=== PATIENT | female | born 1955 | race Caucasian/White ===

== ENCOUNTER 2016-03-22 16:22 | Emergency (ER) | payer BC ==
--- NOTE | 2016-03-22 17:59 | XR ---
EXAMINATION TYPE: XR tibia fibula LT DATE OF EXAM: 03/22/2016 5:42 PM COMPARISON: NONE HISTORY: Pain TECHNIQUE: 2 views FINDINGS: I see no fracture nor dislocation. Knee joint and ankle joint appear intact. IMPRESSION: Negative left tibia and fibula exam.
--- NOTE | 2016-03-22 17:59 | XR ---
EXAMINATION TYPE: XR foot complete LT DATE OF EXAM: 03/22/2016 5:42 PM COMPARISON: NONE HISTORY: Foot pain TECHNIQUE: 3 views FINDINGS: There is narrowing and spurring at the first MP joint. I see no fracture nor dislocation. M etatarsals are intact. 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 No fracture.
--- NOTE | 2016-03-22 18:14 | ED ---
Lower Extremity Injury HPI - General Chief Complaint: Extremity Injury, Lower Stated Complaint: Leg Injury Time Seen by Provider: 03/22/16 17:20 Source: patient, RN notes reviewed Mode of arrival: wheelchair Limitations: no limitations - History of Present Illness Initial Comments: 60-year-old female presents emergency Department chief complaint left leg pain. Patient states she was riding her horse and which of course tipped over onto her leg. Patient states she has left pain below her left knee and left foot pain. Patient states she was able to ambulate but states after seeing a while she's had increasing pain. Patient states her some swelling noted. Patient denies any head injury, LOC. Patient denies any chest pain or shortness breath. Denies any upper extremity injury. - Related Data Allergies Allergy/AdvReac Type Severity Reaction Status Date / Time prochlorperazine Allergy Unknown Verified 03/22/16 16:51 [From Compazine] Review of Systems ROS Statement: Those systems with pertinent positive or pertinent negative responses have been documented in the HPI. ROS Other: All systems not noted in ROS Statement are negative. Past Medical History Past Medical History: Hypertension, Thyroid Disorder History of Any Multi-Drug Resistant Organisms: None Reported Past Surgical History: Orthopedic Surgery Additional Past Surgical History / Comment(s): fibroid removal, left shoulder Past Psychological History: No Psychological Hx Reported Smoking Status: Never smoker Past Alcohol Use History: None Reported Past Drug Use History: None Reported General Exam Limitations: no limitations General appearance: alert, in no apparent distress Head exam: Present: atraumatic, normocephalic, normal inspection Neck exam: Present: normal inspection, full ROM. Absent: tenderness, meningismus, lymphadenopathy Respiratory exam: Present: normal lung sounds bilaterally. Absent: respiratory distress, wheezes, rales, rhonchi, stridor Cardiovascular Exam: Present: regular rate, normal rhythm, normal heart sounds. Absent: systolic murmur, diastolic murmur, rubs, gallop, clicks GI/Abdominal exam: Present: soft, normal bowel sounds. Absent: distended, tenderness, guarding, rebound, rigid Extremities exam: Present: other (Tenderness the left tib-fib at the proximal region, mild swelling no ecchymosis, left foot mild tenderness over the first metatarsal neurovascular intact) Back exam: Present: full ROM. Absent: tenderness, paraspinal tenderness, vertebral tenderness Neurological exam: Present: alert, oriented X3, CN II-XII intact, reflexes normal. Absent: motor sensory deficit Skin exam: Present: warm, dry, intact, normal color. Absent: rash Course Vital Signs 03/22/16 16:48 Temperature 98.4 F Pulse Rate 78 Respiratory 20 Rate Blood Pressure 190/93 O2 Sat by Pulse 100 Oximetry Disposition Clinical Impression: Contusion of left leg Disposition: HOME SELF-CARE Condition: Stable Instructions: Contusion in Adults (ED) Additional Instructions: Please return to the Emergency Department if symptoms worsen or any other concerns. Time of Disposition: 18:14
[2016-03-22 18:53] VITALS: BP 183/97; PULSE 69; RESP 18; TEMP 97.6
== END 2016-03-22 18:45 | disposition home or self-care (01) ==
LOC: EC 16:22
DX: S80.12XA Contusion of left lower leg, initial encounter (principal); W55.19XA Other contact with horse, initial encounter; Y93.52 Activity, horseback riding; I10 Essential (primary) hypertension; E07.9 Disorder of thyroid, unspecified; Z79.899 Other long term (current) drug therapy; Z88.8 Allergy status to other drugs, medicaments and biological substances
CPT/HCPCS: 99283